=== PATIENT | female | born 1975 | race Caucasian/White ===

== ENCOUNTER 2018-04-06 05:35 | Outpatient (CLI) | payer OTHER ==
[~2018-04-06] VITALS: Ht 170.2 cm; Wt 50.8 kg
== END 2018-04-06 10:36 | disposition home or self-care (01) ==
LOC: PREOP 05:35
PROVIDERS: ATTEND Surgery
DX: Z01.818 Encounter for other preprocedural examination (principal)

== ENCOUNTER 2018-04-12 08:30 | Day surgery (SDC) | payer OTHER ==
[~2018-04-12] VITALS: Ht 170.2 cm; Wt 50.8 kg
[2018-04-12] MEDS ORDERED: NS IV 500 ML 500 ML ONE (08:37)
[2018-04-12] MEDS ORDERED: NS IV 500 ML 500 ML IV PRN (09:02)
[2018-04-12 09:06] VITALS: BP 111/79
[2018-04-12] MEDS ORDERED: HURRICAINE EXT TUBE (BENZOCAINE) XX PRN (09:15)
[2018-04-12] MEDS ORDERED: MIDAZOLAM 2 MG/2 ML (VERSED) VIAL IVP ONE (09:15)
[2018-04-12] MEDS ORDERED: fentaNYL INJECTION 100 MCG/2 ML AMP IVP ONE (09:15)
--- NOTE | 2018-04-12 09:33 | History & Physicial ---
History of Present Illness History of Present Illness Reason for visit/HPI to undergo an upper endoscopy with concomitant anoscopy regarding nausea, weight loss and a change in bowel habits. She reports a family history of esophageal carcinoma Date of Admission 04/12/18 Date Seen by a Provider: Apr 12, 2018 Time Seen by a Provider: 09:32 I consulted on this patient on 04/12/18 09:31 Attending Physician Ami Mann MD Admitting Physician Jeremi Sage DO Consult Allergies and Home Medications Allergies Coded Allergies: lansoprazole (Verified Allergy, Mild, TACHYCARDIA, 04/06/18) Home Medications No Active Prescriptions or Reported Meds Patient Home Medication List Home Medication List Reviewed: Yes Past Hgqfduf-Dcjvbp-Qxvwed Hx Patient Social History Marrital Status: Employed/Student: employed Alcohol Use: Denies Use Recreational Drug Use: No Smoking Status: Never a Smoker Recent Foreign Travel: No Contact w/other who traveled: No Recent Hopitalizations: No Immunizations Up To Date Date of Influenza Vaccine: Mar 15, 2018 Seasonal Allergies Seasonal Allergies: Yes (MILD) Surgeries Yes Gallbladder, Hysterectomy Respiratory No Cardiovascular No Reproductive System Hx Reproductive Disorders: No Sexually Transmitted Disease: No HIV/AIDS: No Gastrointestinal Yes Gastroesophageal Reflux, Chronic Constipation, Chronic Diarrhea Blood Transfusions Adverse Reaction to a Blood Tr: No (N/A) Review of Systems Constitutional: no symptoms reported EENTM: no symptoms reported Respiratory: no symptoms reported Cardiovascular: no symptoms reported Gastrointestinal: see HPI Genitourinary: no symptoms reported Musculoskeletal: no symptoms reported Skin: no symptoms reported Psychiatric/Neurological: No Symptoms Reported Physical Exam Vital Signs Vital Signs - First Documented 04/12/18 09:06 Temp 97.3 Pulse 86 Resp 18 B/P (MAP) 111/79 (90) Pulse Ox 100 O2 Delivery Room Air Capillary Refill : Height, Weight, BMI Height: 5'7.00" Weight: 112lbs. 0.0oz. 50.252340yd; 17.5 BMI Method: General Appearance: No Apparent Distress Respiratory: Lungs Clear Cardiovascular: Regular Rate, Rhythm Gastrointestinal: Non Tender, Soft Rectal: Deferred Neurologic/Psychiatric: Oriented x3 Skin: Normal Color, Warm/Dry Assessment/Plan Assessment and Plan lady with nausea, weight loss and change in bowel habits. For EGD with colonoscopy Admission Diagnosis Admission Status: Other (Outpt Proc) AMI MANN MD Apr 12, 2018 09:33
--- NOTE | 2018-04-12 09:34 | Conscious Sedation/ASA ---
Conscious Sedation Pre-Proced Time 09:34 ASA Score 2 For ASA 3 and 4: Consider anesthesia and medical clearance. Also, for patients with a history of failed moderate sedation consider anesthesia. Airway Lungs Heart ASA score ASA 1: a normal healthy patient ASA 2: a patient with a mild systemic disease (mid diabetes, controlled hypertension, obesity ASA 3: a patient with a severe systemic disease that limits activity (angina , COPD, prior Myocardial infarction) ASA 4: a patient with an incapacitating disease that is a constant threat to life (CHF, renal failure) ASA 5: a moribund patient not expected to survive 24 hrs. (ruptured aneurysm) ASA 6: a declared brain patient whose organs are being harvested. For emergent operations, add the letter E after the classification Mallampati Classification Grade 1 Sedation Plan Discussed options with patient/fam The patient is an appropriate candidate to undergo the planned procedure, sedation, and anesthesia. The patient immediately re-assessed prior to indication. AMI MANN MD Apr 12, 2018 09:34
--- OUTSIDE RECORDS SUMMARY | 2018-04-12 09:47 | XMS REPORT ---
Author Author [facility] Medical Staff Organization [facility] Address [address] [place], [place] [address] Phone [phone] Care Team Providers Care Warp Tester Name Role Phone TAHIRA KING, JUSTO PP [phone] Summary purpose CCDA Sent to [facility] Chief Complaint and Reason for Visit No authorized Reason for Visit (Admitting Diagnosis) is available for this visit. Problem list No authorized problems tracked for continuity of care are available for this visit. Encounters No authorized problems tracked for encounter diagnoses are available for this visit. Medications No medications recorded for this patient visit Allergies, adverse reactions, alerts Allergen Category Ingredient Status Reaction Severity Onset Prevacid Drug Prevacid Active tachy Moderate Adolescence Prevacid Drug lansoprazole Active tachy Moderate Adolescence Benadryl Drug Benadryl Active tachy Moderate Adolescence Benadryl Drug diphenhydramine Active tachy Moderate Adolescence Immunizations No immunizations recorded for this patient visit Relevant diagnostic tests and/or laboratory data No authorized results are available for this patient visit History of procedures Procedure Code Code Type Description Date Performed Performing Physician 57213 CPT-4 EMERGENCY DEPT VISIT 04-05-2016 SUSI MCKINNEY Functional status No functional or cognitive status observations are available for this visit. Vital signs No authorized vital signs are available for this visit. Social history No Social History or smoking status observations were recorded for this visit. ( Unknown if ever smoked.) Treatment Plan No treatment plan text is available for this visit. Hospital discharge instructions No discharge instruction text is available for this visit.
--- OUTSIDE RECORDS SUMMARY | 2018-04-12 09:47 | XMS REPORT ---
Author Author [facility] Medical Staff Organization [facility] Address [address] [place], [place] [address] Phone [phone] Care Team Providers Care Field Technical Specialist Name Role Phone JUSTO HOFFMANN MD PP [phone] Summary purpose CCDA Sent to [facility] Chief Complaint and Reason for Visit No [...] visit Relevant diagnostic tests and/or laboratory data RESULTS CBC [id number]:12:00 Result Normal Range Units WBC L 4.49 4.60-10.20 x 103/uL RBC L 4.01 4.04-6.13 x 106/uL Hemoglobin 12.2 12.2-18.1 g/dl Hematocrit L 37.1 37.7-53.7 % MCV 92.5 80.0-97.0 FL MCH 30.4 27.0-31.2 pg MCHC 32.9 31.8-35.4 g/dl RDW 12.7 11.6-14.8 % Platelets 205 142-424 x 103/uL MPV 10.6 9.4-12.4 FL Manual Diff Not Indicated Neutrophil % 68.8 37-80 % Neutrophils 3.09 2.0-6.9 x 103/uL Lymphocyte % 22.3 10-50 % Lymphocytes 1.00 0.6-3.4 x 103/uL Monocyte % 6.7 0-12 % Monocytes 0.30 0.0-1.0 x 103/uL Eosinophil % 1.8 0-7 % Eosinophils 0.08 0-0.7 x 103/uL Basophil % 0.4 0-2 % Basophils 0.02 0.0-0.1 x 103/uL Chemistry Group :12:00 Result Normal Range Units Hemoglobin A1C 4.9 < 6.0 % Ferritin 60.02 25-300 ng/ml Free T4 1.00 0.70-1.48 ng/dl TSH 1.62 0.35-4.94 uIU/mL Iron 69 50-175 ug/dl T3 0.91 0.58-1.59 ng/ml Reference Lab Group :12:00 Result Normal Range Units Wheat H 0.24 kU/L Class 0/1 TEST PERFORMED AT: [facility] [address] [place], [place] [address] MAGALIS CASILLAS DO,MPH TPO Antibody 1 <9 IU/mL TEST PERFORMED AT: [facility] [place] [address] MAGALIS CASILLAS DO,MPH Thyroglobulin Ab's H 2 < or=1 IU/mL TEST PERFORMED AT: [facility] [address] MAGALIS CASILLAS DO,MPH Interpretation See Below SpecificLevel of Allergen IGE ClasskU/L Specific IGE Antibody ----- --------- 0<0.10 Absent/Undetectable 0/10.10-0.34 Very Low Level 10.35-0.69 Low Level 20.70-3.49 Moderate Level 33.50-17.4 High Level 417.5-49.9 Very High Level 550-100Very High Level 6>100Very High Level The clinical relevance of allergen results of 0.10-0.34 kU/L are undetermined and intended for specialist use. Allergens denoted with a "" include results using one or more analyte specific reagents. In those cases, the test was developed and its analytical performance characteristics have been determined by [employer]. It has not been cleared or approved by the U.S. Food and Drug Administration. The FDA has determined that such clearance or approval is not necessary. This assay has been validated pursuant to the CLIA regulations and is used for clinical purposes. TEST PERFORMED AT: [facility] [address] [place] [address] MAGALIS CASILLAS DO,MPH Special Chemistry [id number]:12:00 Result Normal Range Units Vitamin D 25 43.3 30-100 ng/ml Ferritin 60.02 25-300 ng/ml History of procedures Procedure Code Code Type Description Date Performed Performing Physician 13882 CPT-4 ASSAY OF VITAMIN D 02-08-2016 [facility] 50944 CPT-4 ASSAY THYROID STIM HORMONE 02-08-2016 [facility] 53928 CPT-4 ASSAY OF FREE THYROXINE 02-08-2016 [facility] 29982 CPT-4 ASSAY, TRIIODOTHYRONINE (T3) 02-08-2016 [facility] 22289 CPT-4 ASSAY OF IRON 02-08-2016 [facility] 03805 CPT-4 GLYCOSYLATED HEMOGLOBIN TEST 02-08-2016 [facility] 50736 CPT-4 COMPLETE CBC W/AUTO DIFF WBC 02-08-2016 [facility] 28159 CPT-4 ASSAY OF FERRITIN 02-08-2016 [facility] 68660 CPT-4 THYROGLOBULIN ANTIBODY 02-08-2016 [facility] 17591 CPT-4 MICROSOMAL ANTIBODY 02-08-2016 [facility] 79386 CPT-4 ALLERGEN SPECIFIC IGE 02-08-2016 [facility] 76078 CPT-4 ROUTINE VENIPUNCTURE 02-08-2016 [facility] Functional status No functional or cognitive status [...]
--- OUTSIDE RECORDS SUMMARY | 2018-04-12 09:48 | XMS REPORT ---
Author Author [facility] Medical Staff Organization [facility] Address [address] [place], [place] [address] Phone [phone] Care Team Providers Care Skating Rink Ice Maker Name Role Phone TAHIRA KING, JUSTO PP [phone] Summary purpose CCDA Sent to [facility] Chief Complaint and Reason for [...] Code Type Description Date Performed Performing Physician 50228 CPT-4 EMERGENCY DEPT VISIT 09-09-2015 [place] Functional status No functional or cognitive status [...]
--- OUTSIDE RECORDS SUMMARY | 2018-04-12 09:48 | XMS REPORT ---
Author Author [facility] Medical Staff Organization [facility] Address [address] [place], [place] [address] Phone [phone] Care Team Providers Care Mechanical Tech Name Role Phone TAHIRA KING, JUSTO PP [phone] TAHIRA KING, JUSTO PP [phone] JUSTO ESPINOSA MD PP [phone] Summary purpose CCDA Sent to [facility] Chief Complaint and Reason for Visit No authorized Reason for Visit (Admitting Diagnosis) is available for this visit. Problem list Condition Status Certainty Chronicity Onset .Irritable bowel syndrome Resolved Actual Acute .Nausea Resolved Actual Acute .Vomiting Discharged .Dehydration Resolved Actual Acute Encounters The following conditions tracked for encounter diagnoses were recorded for this visit: Finding or Diagnosis Status Certainty Chronicity Onset .Irritable bowel syndrome Resolved Actual Acute .Nausea Resolved Actual Acute .Vomiting Discharged .Dehydration Resolved Actual Acute Medications Discharge Medications Status Medication Directions Current omeprazole 40 mg capsule,delayed release 1 tab(s) oral oral TWO TIMES A DAY Allergies, adverse reactions, alerts Allergen Category Ingredient Status Reaction Severity Onset Prevacid Drug Prevacid Active tachy Moderate Adolescence Prevacid Drug lansoprazole Active tachy Moderate Adolescence Benadryl Drug Benadryl Active tachy Moderate Adolescence Benadryl Drug diphenhydramine Active tachy Moderate Adolescence Immunizations No immunizations recorded for this patient visit Relevant diagnostic tests and/or laboratory data RESULTS CBC [id number]:20:00 Result Normal Range Units WBC 5.92 4.60-10.20 x 103/uL RBC 4.40 4.04-6.13 x 106/uL Hemoglobin 13.5 12.2-18.1 g/dl Hematocrit 39.9 37.7-53.7 % MCV 90.7 80.0-97.0 FL MCH 30.7 27.0-31.2 pg MCHC 33.8 31.8-35.4 g/dl RDW 12.6 11.6-14.8 % Platelets 205 142-424 x 103/uL MPV 10.1 9.4-12.4 FL Manual Diff Not Indicated Neutrophil % 73.1 37-80 % Neutrophils 4.33 2.0-6.9 x 103/uL Lymphocyte % 16.6 10-50 % Lymphocytes 0.98 0.6-3.4 x 103/uL Monocyte % 8.8 0-12 % Monocytes 0.52 0.0-1.0 x 103/uL Eosinophil % 1.2 0-7 % Eosinophils 0.07 0-0.7 x 103/uL Basophil % 0.3 0-2 % Basophils 0.02 0.0-0.1 x 103/uL Urinalysis :32:00 Result Normal Range Units Site Voided Urine Color Yellow Yellow Urine Appearance Clear Clear Urine Glucose Negative Negative Urine Bilirubin AB 1+ Negative Urine Ketones AB 2+ Negative Urine Specific Ambler H 1.025 1.010-1.020 Urine PH 7.0 5.5-7.5 Urine Protein AB 1+ Negative Urine Urobilinogen 0.2 0.2-1.0 Urine Nitrites Negative Negative Urine Blood AB Trace Negative Urine Leukocytes Negative Negative Urine WBC's None Seen Urine RBC's 3-5 Urine Comments Mucous 2+ Squamous Epi's 1+ Serology Group [id number]:15:00 Result Normal Range Units H Pylori IgG AB Positive Negative :03:00 Result Normal Range Units , Urine Negative Negative Chemistry Group :30:00 Result Normal Range Units T4 5.25 4.87-11.72 ug/dl TSH 1.50 0.35-4.94 uIU/mL :46:00 Result Normal Range Units Amylase 51 25-125 U/L Lipase L 7 8-78 U/L :20:00 Result Normal Range Units Glucose H 109 70-99 mg/dl BUN 13 7-26 mg/dl Creatinine 0.8 0.6-1.3 mg/dl Sodium 139 136-145 mmol/L Potassium 3.5 3.5-5.1 mmol/L Chloride 106 98-107 mmol/L CO2 L 21 22-29 mmol/L BUN/Creatinine Ratio 16 7-25 Ratio Calcium 9.2 8.4-10.2 mg/dl Protein Total 7.5 6.4-8.3 g/dl Albumin 4.1 3.5-5.0 g/dl A/G Ratio 1.2 1.2-2.2 Ratio AST 16 5-34 U/L ALT 17 0-55 U/L ALP 55 40-150 U/L Bilirubin Total H 1.3 0.2-1.2 mg/dl Osmolality 269 261-280 mOsm/kg Globulin 3.4 2.4-3.5 g/dl Reference Lab Group [id number]:35:00 Result Normal Range Units Source Unformed Result Amended on 2015-09-10 at 15:07:04. Previous status was FR. The [employer] Gastrointestinal Panel is intended as an aid in the diagnosis of specific agents of gastrointestinal illness and results are meant to be used in conjunction with other clinical, laboratory, and epidemiological data.Testing should only be performed on individuals with signs and/or symptoms of gastrointestinal illness (i.e. diarrhea).This test is not intended to monitor or guide treatment for C.difficle infection in adults or detection in children less than 2 years of age. Campylobacter Not Detected Not Detected Result Amended on 2015-09-10 at 15:07:04. Previous status was FR. C difficile toxin A/B AB Detected Not Detected Result Amended on 2015-09-10 at 15:07:04. Previous status was FR. Result successfully called to [facility] on 09/10/2015 at 15:04 by SARAH. IZZY Plesiomonas shigelloid Not Detected Not Detected Result Amended on 2015-09-10 at 15:07:04. Previous status was FR. Salmonella Not Detected Not Detected Result Amended on 2015-09-10 at 15:07:05. Previous status was FR. Vibrio Not Detected Not Detected Result Amended on 2015-09-10 at 15:07:05. Previous status was FR. Vibrio cholerae Not Detected Not Detected Result Amended on 2015-09-10 at 15:07:05. Previous status was FR. Yersinia enterocolitica Not Detected Not Detected Result Amended on 2015-09-10 at 15:07:05. Previous status was FR. Enteroaggregative Ecoli Not Detected Not Detected Result Amended on 2015-09-10 at 15:07:05. Previous status was FR. Enteropathogenic Ecoli Not Detected Not Detected Result Amended on 2015-09-10 at 15:07:05. Previous status was FR. Enterotoxigenic Ecoli Not Detected Not Detected Result Amended on 2015-09-10 at 15:07:05. Previous status was FR. Shig-like toxin Ecoli Not Detected Not Detected Result Amended on 2015-09-10 at 15:07:05. Previous status was FR. Shig/Enteroinvasiv Ecoli Not Detected Not Detected Result Amended on 2015-09-10 at 15:07:05. Previous status was FR. Cryptosporidium Not Detected Not Detected Result Amended on 2015-09-10 at 15:07:05. Previous status was FR. Cyclospora cayetanens. Not Detected Not Detected Result Amended on 2015-09-10 at 15:07:05. Previous status was FR. Entamoeba histolytica Not Detected Not Detected Result Amended on 2015-09-10 at 15:07:05. Previous status was FR. Giardia Lamblia Not Detected Not Detected Result Amended on 2015-09-10 at 15:07:05. Previous status was FR. Adenovirus F 40/41 Not Detected Not Detected Result Amended on 2015-09-10 at 15:07:05. Previous status was FR. Asterovirus Not Detected Not Detected Result Amended on 2015-09-10 at 15:07:05. Previous status was FR. Norovirus GI/GII Not Detected Not Detected Result Amended on 2015-09-10 at 15:07:05. Previous status was FR. Rotavirus Not Detected Not Detected Result Amended on 2015-09-10 at 15:07:05. Previous status was FR. Sapovirus Not Detected Not Detected Result Amended on 2015-09-10 at 15:07:05. Previous status was FR. [id number]:22:00 Result Normal Range Units Adenovirus Not Detected Not Detected Result Amended on 2015-09-09 at 15:32:07. Previous status was FR. Adeno2 Not Detected Not Detected Result Amended on 2015-09-09 at 15:32:07. Previous status was FR. Coronavirus 229E Not Detected Not Detected Result Amended on 2015-09-09 at 15:32:07. Previous status was FR. Coronavirus HKU1 Not Detected Not Detected Result Amended on 2015-09-09 at 15:32:07. Previous status was FR. Coronavirus NL63 Not Detected Not Detected Result Amended on 2015-09-09 at 15:32:07. Previous status was FR. Coronavirus OC43 Not Detected Not Detected Result Amended on 2015-09-09 at 15:32:07. Previous status was FR. Human Metapneumovir. Not Detected Not Detected Result Amended on 2015-09-09 at 15:32:07. Previous status was FR. Entero1 Not Detected Not Detected Result Amended on 2015-09-09 at 15:32:07. Previous status was FR. Entero2 Not Detected Not Detected Result Amended on 2015-09-09 at 15:32:07. Previous status was FR. Human Rhinovirus 1 Not Detected Not Detected Result Amended on 2015-09-09 at 15:32:07. Previous status was FR. Human Rhinovirus 2 Not Detected Not Detected Result Amended on 2015-09-09 at 15:32:07. Previous status was FR. Human Rhinovirus 3 Not Detected Not Detected Result Amended on 2015-09-09 at 15:32:07. Previous status was FR. Human Rhinovirus 4 Not Detected Not Detected Result Amended on 2015-09-09 at 15:32:07. Previous status was FR. IihQ-H4-3358 Not Detected Not Detected Result Amended on 2015-09-09 at 15:32:07. Previous status was FR. FluA-H1-gonzalez Not Detected Not Detected Result Amended on 2015-09-09 at 15:32:07. Previous status was FR. FluA-H3 Not Detected Not Detected Result Amended on 2015-09-09 at 15:32:07. Previous status was FR. FluA-pan1 Not Detected Not Detected Result Amended on 2015-09-09 at 15:32:07. Previous status was FR. FluA-pan2 Not Detected Not Detected Result Amended on 2015-09-09 at 15:32:07. Previous status was FR. Influenza B Not Detected Not Detected Result Amended on 2015-09-09 at 15:32:07. Previous status was FR. Parainfluenza Virus 1 Not Detected Not Detected Result Amended on 2015-09-09 at 15:32:07. Previous status was FR. Parainfluenza Virus 2 Not Detected Not Detected Result Amended on 2015-09-09 at 15:32:07. Previous status was FR. Parainfluenza Virus 3 Not Detected Not Detected Result Amended on 2015-09-09 at 15:32:07. Previous status was FR. Parainfluenza Virus 4 Not Detected Not Detected Result Amended on 2015-09-09 at 15:32:07. Previous status was FR. Respiratory Syncytial Vir Not Detected Not Detected Result Amended on 2015-09-09 at 15:32:07. Previous status was FR. Bordetella pertussis Not Detected Not Detected Result Amended on 2015-09-09 at 15:32:07. Previous status was FR. Chlamydophila pnemon Not Detected Not Detected Result Amended on 2015-09-09 at 15:32:07. Previous status was FR. Mycoplasma pneumoni Not Detected Not Detected Result Amended on 2015-09-09 at 15:32:07. Previous status was FR. Urinalysis [id number]:32:00 Result Normal Range Units Site Voided Urine Color Yellow Yellow Urine Appearance Clear Clear Urine Glucose Negative Negative Urine Bilirubin AB 1+ Negative Urine Ketones AB 2+ Negative Urine Specific Ambler H 1.025 1.010-1.020 Urine PH 7.0 5.5-7.5 Urine Protein AB 1+ Negative Urine Urobilinogen 0.2 0.2-1.0 Urine Nitrites Negative Negative Urine Blood AB Trace Negative Urine Leukocytes Negative Negative Urine WBC's None Seen Urine RBC's 3-5 Squamous Epi's 1+ Gram Positive Bacteria [id number]:22:00 Result Normal Range Units Entero1 Not Detected Not Detected Result Amended on 2015-09-09 at 15:32:07. Previous status was FR. History of procedures Procedure Code Code Type Description Date Performed Performing Physician G0378 CPT-4 HOSPITAL OBSERVATION PER HR 09-09-2015 JUSTO ESPINOSA 67977 CPT-4 COMPLETE CBC W/AUTO DIFF WBC 09-09-2015 JUSTO ESPINOSA 11471 CPT-4 COMPREHEN METABOLIC PANEL 09-09-2015 JUSTO ESPINOSA 50382 CPT-4 URINALYSIS, AUTO W/SCOPE 09-09-2015 JUSTO ESPINOSA 78882 CPT-4 DETECT AGENT NOS, DNA, AMP 09-09-2015 JUSTO ESPINOSA 03947 CPT-4 RESP VIRUS -25 TARGETS 09-09-2015 JUSTO ESPINOSA 78037 CPT-4 CHYLMD PNEUM, DNA, AMP PROBE 09-09-2015 JUSTO ESPINOSA 38968 CPT-4 M.PNEUMON, DNA, AMP PROBE 09-09-2015 JUSTO ESPINOSA 31458 CPT-4 ASSAY OF AMYLASE 09-09-2015 JUSTO ESPINOSA 67941 CPT-4 ASSAY OF LIPASE 09-09-2015 JUSTO ESPINOSA 11324 CPT-4 URINE TEST 09-09-2015 JUSTO ESPINOSA 98784 CPT-4 CT ABD&PELV 1+ SECTION/REGNS 09-09-2015 JUSTO ESPINOSA 00203 CPT-4 HELICOBACTER PYLORI 09-09-2015 JUSTO ESPINOSA J2550 CPT-4 PROMETHAZINE HCL INJECTION 09-09-2015 [place] J7030 CPT-4 INFUSION, NS, 1000 CC 09-09-2015 VONTONI NUNO J7030 CPT-4 INFUSION, NS, 1000 CC 09-09-2015 [place] C9113 CPT-4 INJ PANTOPRAZOLE SODIUM, VIA 09-09-2015 [place] 27616 CPT-4 ROUTINE VENIPUNCTURE 09-09-2015 JUSTO ESPINOSA 46688 CPT-4 EMERGENCY DEPT VISIT 09-09-2015 JUSTO ESPINOSA 99383 CPT-4 THER/PROPH/DIAG INJ, IV PUSH 09-09-2015 JUSTO ESPINOSA 07448 CPT-4 IADNA-DNA/RNA PROBE TQ 06-0809-10-2015 JUSTO ESPINOSA 45099 CPT-4 ASSAY THYROID STIM HORMONE 09-10-2015 JUSTO ESPINOSA 21776 CPT-4 ASSAY OF TOTAL THYROXINE 09-10-2015 JUSTO ESPINOSA J7030 CPT-4 INFUSION, NS, 1000 CC 09-10-2015 [place] J7030 CPT-4 INFUSION, NS, 1000 CC 09-10-2015 [place] 95622 CPT-4 ROUTINE VENIPUNCTURE 09-10-2015 JUSTO ESPINOSA Q9967 CPT-4 LOCM 300-399MG/ML IODINE,1ML 09-09-2015 JUSTO ESPINOSA J7050 CPT-4 NS SOLUTION 250 CC INFUSION 09-09-2015 JUSTO ESPINOSA 70265 CPT-4 HYDRATE IV INFUSION, ADD-ON 09-09-2015 JUSTO ESPINOSA 60361 CPT-4 TX/PRO/DX INJ NEW DRUG ADDON 09-09-2015 JUSTO ESPINOSA 69473 CPT-4 HYDRATE IV INFUSION, ADD-ON 09-09-2015 JUSTO ESPINOSA 89680 CPT-4 HYDRATE IV INFUSION, ADD-ON 09-10-2015 JUSTO ESPINOSA Functional status Functional Status Finding Observation Time Dexterity Right-handed :05 Weight Bearing Statu Full [id number]:00 Transferring/Ambulat Independent 17-58-181150:05 Bathing Independent :05 Dressing Independent :05 Eating Independent :05 Drinking Independent :05 Toileting Independent :05 Able to Turn Self in Independent :05 Stairs Independent :05 Cognitive Status Finding Observation Time Level of Consciousne Alert :00 Oriented to Person Yes :[address] Yes :00 Oriented to Time Yes :00 Eyes - ROSI Yes :00 Vital signs Type Value Date Respirations 20 :45 Pulse 78 :45 O2 Saturation 100% :45 Systolic Blood Press 92mm/HG :45 Diastolic Blood Pres 58mm/HG :45 Temperature (Fahr) 99.3Degrees :45 Height 67in :48 Weight 115.8LB [id number]:48 Social history Type Value Smoking Status NEVER SMOKER Treatment Plan Treatment Plan at To follow up in 1 week in office and to take antibiotic for 10 days and not to return to work until 09/18/15 Hospital discharge instructions Diagnosis Abdominal Pain -secondary to H. Pylori vs IBS vs Endometriosis Diet As tolerated Activity Level as tolerated Med Dispensed by Pro See med list. Also start on daily probiotic. Follow up with Dr. Espinosa Appointment Date and 09/17/15 @ 2:30 PM Comment: [phone] Other Instructions We will schedule you with an paint department supervisor as an outpatient.
--- OUTSIDE RECORDS SUMMARY | 2018-04-12 09:48 | XMS REPORT ---
Author Author [facility] Medical Staff Organization [facility] Address [address] [place], [place] [address] Phone [phone] Care Team Providers Care Gauger Delivery Name Role Phone TAHIRA KING, JUSTO PP [phone] JUSTO HOFFMANN MD, PP [phone] Summary purpose CCDA Sent to [facility] Chief Complaint and Reason for Visit [...] Code Type Description Date Performed Performing Physician J0696 CPT-4 CEFTRIAXONE SODIUM INJECTION 04-06-2016 SUSI MCKINNEY J7050 CPT-4 NS SOLUTION 250 CC INFUSION 04-06-2016 SUSI MCKINNEY 97655 CPT-4 THER/PROPH/DIAG IV INF, INIT 04-06-2016 SUSI MCKINNEY Functional status No functional or cognitive status observations are available for this visit. Vital signs Type Value Date Respirations 20 :20 Pulse 100 :20 O2 Saturation 99% :20 Systolic Blood Press 97mm/HG :20 Diastolic Blood Pres 77mm/HG 82-22-968568:20 Temperature (Fahr) 98.2Degrees :20 Social history No Social History or smoking status observations were recorded for this visit. ( Unknown if ever smoked.) Treatment Plan No treatment plan text is available for this visit. Hospital discharge instructions No discharge instruction text is available for this visit.
--- OUTSIDE RECORDS SUMMARY | 2018-04-12 09:48 | XMS REPORT ---
Author Author [facility] Medical Staff Organization [facility] Address [address] [place], [place] [address] Phone [phone] Care Team Providers Care Slitter Helper Name Role Phone JESÚS KING, JUSTO PP [phone] JUSTO HOFFMANN MD, PP [phone] Summary purpose CCDA Sent to [facility] Chief Complaint and Reason for Visit No authorized Reason for Visit (Admitting Diagnosis) is available for this visit. Problem list No authorized problems tracked for continuity of care are available for this visit. Encounters No authorized problems tracked for encounter diagnoses are available for this visit. Medications Discharge Medications Status Medication Directions Current Zantac 75 oral 1 Tablet oral 2 times per day Allergies, adverse reactions, alerts Allergen Category Ingredient Status Reaction Severity Onset No known drug allergies No known drug allergies No known drug allergies Active Immunizations No immunizations recorded for this patient visit Relevant diagnostic tests and/or laboratory data No authorized results are available for this patient visit History of procedures Procedure Code Code Type Description Date Performed Performing Physician 99709 CPT-4 EXC TR-EXT B9+TATI 3.1-4 CM 06-21-2015 JUSTO HOFFMANN Functional status No functional or cognitive status observations are available for this visit. Vital signs Type Value Date Respirations 18 89-89-280406:23 Pulse 82 03-65-752481:23 O2 Saturation 97% 34-18-011372:23 Systolic Blood Press 149mm/HG 58-88-945947:23 Diastolic Blood Pres 64mm/HG 80-09-559673:23 Temperature (Fahr) 98.2Degrees 14-21-445473:23 Social history No Social History or smoking status observations were recorded for this visit. ( Unknown if ever smoked.) Treatment Plan No treatment plan text is available for this visit. Hospital discharge instructions Diagnosis removal of lesions of the back Diet as tolerated Activity Level keep this clean and dry for 2 days if possible. change the dressing if it gets wet. When yoiu do wash the areas, just lket water run over it Personal Items Retur Yes Med Dispensed by [facility] may take tylenol or ibuprofen for pain. Avoid aspirin [facility] W[facility] Care you let your Dr know if you see any rednessm, swelling or have pain of the site, even after the sutures come out.
--- OUTSIDE RECORDS SUMMARY | 2018-04-12 09:48 | XMS REPORT ---
Author Author [facility] Medical Staff Organization [facility] Address [address] [place], [place] [address] Phone [phone] Care Team Providers Care Tree Sapper Name Role Phone JUSTO HOFFMANN MD PP [phone] JUSTO HOFFMANN MD, PP [phone] Summary purpose CCDA Sent to [facility] Chief Complaint and Reason for Visit Admit Diagnosis 1 HYSTERECTOMY THIS WEEK-SOB NOW Problem list No authorized problems tracked for continuity of care are available for this visit. Encounters No authorized problems tracked for encounter diagnoses are available for this visit. Medications Discharge Medications Status Medication Directions Current ibuprofen 800 mg tablet 800 miligram(s) oral oral EVERY EIGHT HOURS NEEDED for pain Current omeprazole 40 mg capsule,delayed release 40 miligram(s) oral TWO TIMES A DAY Stopped Probiotic oral 1 tab(s) oral ONE TIME A DAY follows instructions on bottle Allergies, adverse reactions, alerts Allergen Category Ingredient Status Reaction Severity Onset Prevacid Drug Prevacid Active tachy Moderate Adolescence Prevacid Drug lansoprazole Active tachy Moderate Adolescence Benadryl Drug Benadryl Active tachy Moderate Adolescence Benadryl Drug diphenhydramine Active tachy Moderate Adolescence Immunizations No immunizations recorded for this patient visit Relevant diagnostic tests and/or laboratory data RESULTS CBC 62-50-257017:15:00 Result Normal Range Units WBC 6.27 4.60-10.20 x 103/uL RBC L 3.82 4.04-6.13 x 106/uL Hemoglobin L 11.6 12.2-18.1 g/dl Hematocrit L 34.9 37.7-53.7 % MCV 91.4 80.0-97.0 FL MCH 30.4 27.0-31.2 pg MCHC 33.2 31.8-35.4 g/dl RDW 12.8 11.6-14.8 % Platelets 170 142-424 x 103/uL MPV 10.1 9.4-12.4 FL Manual Diff Not Indicated Neutrophil % H 81.1 37-80 % Neutrophils 5.09 2.0-6.9 x 103/uL Lymphocyte % 12.8 10-50 % Lymphocytes 0.80 0.6-3.4 x 103/uL Monocyte % 5.7 0-12 % Monocytes 0.36 0.0-1.0 x 103/uL Eosinophil % 0.2 0-7 % Eosinophils 0.01 0-0.7 x 103/uL Basophil % 0.2 0-2 % Basophils 0.01 0.0-0.1 x 103/uL Urinalysis :20:00 Result Normal Range Units Site Voided Urine Color Yellow Yellow Urine Appearance Clear Clear Urine Glucose Negative Negative Urine Bilirubin Negative Negative Urine Ketones Negative Negative Urine Specific Ethel 1.015 1.010-1.020 Urine PH 7.5 5.5-7.5 Urine Protein Negative Negative Urine Urobilinogen 0.2 0.2-1.0 Urine Nitrites Negative Negative Urine Blood AB 2+ Negative Urine Leukocytes AB 1+ Negative Urine WBC's 6-10 Urine RBC's 16-20 Urine Comments CULTURE SET Amorphous Crystals 1+ Squamous Epi's 1+ Chemistry Group :15:00 Result Normal Range Units Glucose 97 70-99 mg/dl BUN L 6 7-26 mg/dl Creatinine 0.7 0.6-1.3 mg/dl Sodium 139 136-145 mmol/L Potassium L 3.1 3.5-5.1 mmol/L Chloride H 108 98-107 mmol/L CO2 24 22-29 mmol/L BUN/Creatinine Ratio 9 7-25 Ratio Calcium 8.6 8.4-10.2 mg/dl Protein Total L 6.2 6.4-8.3 g/dl Albumin L 3.2 3.5-5.0 g/dl A/G Ratio L 1.1 1.2-2.2 Ratio AST 32 5-34 U/L ALT 38 0-55 U/L ALP 47 40-150 U/L Bilirubin Total 0.8 0.2-1.2 mg/dl Osmolality 266 261-280 mOsm/kg Globulin 3.0 2.4-3.5 g/dl D-Dimer H 2280 < 100 ng/ml Urinalysis :20:00 Result Normal Range Units Site Voided Urine Color Yellow Yellow Urine Appearance Clear Clear Urine Glucose Negative Negative Urine Bilirubin Negative Negative Urine Ketones Negative Negative Urine Specific Ethel 1.015 1.010-1.020 Urine PH 7.5 5.5-7.5 Urine Protein Negative Negative Urine Urobilinogen 0.2 0.2-1.0 Urine Nitrites Negative Negative Urine Blood AB 2+ Negative Urine Leukocytes AB 1+ Negative Urine WBC's 6-10 Urine RBC's 16-20 Amorphous Crystals 1+ Squamous Epi's 1+ History of procedures Procedure Code Code Type Description Date Performed Performing Physician 85103 CPT-4 COMPLETE CBC W/AUTO DIFF WBC 04-05-2016 SUSI FAYE 90065 CPT-4 COMPREHEN METABOLIC PANEL 04-05-2016 SUSI MCKINNEY 07498 CPT-4 URINALYSIS, AUTO W/SCOPE 04-05-2016 SUSI MCKINNEY 81506 CPT-4 FIBRIN DEGRADATION, QUANT 04-05-2016 SUIS MCKINNEY 30755 CPT-4 URINE CULTURE/COLONY COUNT 04-05-2016 SUSI MCKINNEY 83798 CPT-4 CT ANGIOGRAPHY, CHEST 04-05-2016 SUSI MCKINNEY 03607 CPT-4 AIRWAY INHALATION TREATMENT 04-05-2016 SUSI FAYE J0696 CPT-4 CEFTRIAXONE SODIUM INJECTION 04-05-2016 SUSI FAYE J7040 CPT-4 NORMAL SALINE SOLUTION INFUS 04-05-2016 SUSI FAYE 15828 CPT-4 EMERGENCY DEPT VISIT 04-05-2016 SUSI FAYE Q9967 CPT-4 LOCM 300-399MG/ML IODINE,1ML 04-05-2016 SUSI FAYE J7050 CPT-4 NS SOLUTION 250 CC INFUSION 04-05-2016 SUSI FAYE 13536 CPT-4 THER/PROPH/DIAG IV INF, INIT 04-05-2016 SUSI FAYE Functional status Cognitive Status Finding Observation Time Level of Consciousne Alert 59-62-516080:05 Oriented to Person Yes 42-35-201088:[address] Yes :05 Oriented to Time Yes :05 Eyes - ROSI Yes :05 Vital signs Type Value Date Respirations 18 63-61-100205:35 Pulse 107 :35 O2 Saturation 98% :35 Systolic Blood Press 90mm/HG :35 Diastolic Blood Pres 54mm/HG :35 Temperature (Fahr) 98.0Degrees :35 Social history Type Value Smoking Status NEVER SMOKER Treatment Plan No treatment plan text is available for this visit. Hospital discharge instructions Diagnosis Acute URI with right mid lobe congestion, UTI Diet regular Activity Level as able Med Dispensed by [facility] CTA of lungs were indicative of the infection and the UA was positive so you were given Rocephin 1Gm IV now and again in 24hrs. Also and Rx for keflex 500mg (cephalixin) was given at 500mg three times a day and also Proair HFA Inhaler was ordered at 2 puffs every four hours as needed for shortness of breath.. Follow up with your physician Appointment Date and as directed Wound Care continue care of abd sites as directed Other Instructions Notify if should worsen or if does not continue to improve..
--- OUTSIDE RECORDS SUMMARY | 2018-04-12 09:49 | XMS REPORT | Continuity of Care Document ---
Author Author [facility] Address Unknown Phone Unavailable Allergies Active Description Code Type Severity Reaction Onset Reported/Identified Relationship to Patient Clinical Status Yes diphenhydramine 4787 Drug Allergy N/A N/A Confirmed or Verified Yes lansoprazole 4456 Drug Allergy N/A N/A Confirmed or Verified Yes No Known Medication Allergies Drug N/A N/A Yes No known drug allergies [id number] Drug Allergy N/A N/A 06/21/2015 Confirmed but inactive Yes Benadryl 5527 Drug Allergy Moderate tachy 09/09/2015 Yes Prevacid 98732 Drug Allergy Moderate tachy 09/09/2015 Yes Prevacid 61331 Drug Allergy N/ A N/A 09/09/2015 Yes adhesive adhesive Drug Allergy Mild RASH/REDNESS 03/19/2016 Yes lansoprazole lansoprazole Drug Allergy Moderate CONTRACTURES/TACHYCARDIA Yes lansoprazole [id number] Drug Allergy Mild TACHYCARDIA 04/06/2018 Medications Medication Packaging Start Date Stop Date Route Dosage Sig PREDNISOLONE ACETATE 01/30/2016 instill 1 drop by ophthalmic route 4 times every day into affected eye(s) Problems Date Dx Coded Attending Type Code Diagnosis Diagnosed By 06/21/2015 JUSTO HOFFMANN MD D22.5 Melanocytic nevi of trunk 06/21/2015 JUSTO HOFFMANN MD D23.5 Other benign neoplasm of skin of trunk 09/09/2015 VON NUNO MD E86.0 Dehydration 09/09/2015 VON NUNO MD K21.9 Gastro-esophageal reflux disease without esophagitis 09/09/2015 VON NUNO MD K58.9 Irritable bowel syndrome without diarrhea 09/09/2015 VON NUNO MD N80.3 Endometriosis of pelvic peritoneum 09/09/2015 VON NUNO MD R10.33 Periumbilical pain 09/10/2015 JUSTO HOFFMANN MD E86.0 Dehydration 09/10/2015 JUSTO HOFFMANN MD K21.9 Gastro-esophageal reflux disease without esophagitis 09/10/2015 JUSTO HOFFMANN MD K58.9 Irritable bowel syndrome without diarrhea 09/10/2015 JUSTO HOFFMANN MD N80.3 Endometriosis of pelvic peritoneum 09/10/2015 JUSTO HOFFMANN MD R10.33 Periumbilical pain 02/02/2016 W H10.45 Other chronic allergic conjunctivitis 02/02/2016 W H52.223 Regular astigmatism, bilateral 02/04/2016 W H10.45 Other chronic allergic conjunctivitis 02/04/2016 W H52.223 Regular astigmatism, bilateral 02/08/2016 MICHELLE ESQUIVEL DC E07.9 Disorder of thyroid, unspecified 02/08/2016 MICHELLE ESQUIVEL DC E55.9 Vitamin D deficiency, unspecified 02/08/2016 MICHELLE ESQUIVEL DC E61.1 Iron deficiency 02/08/2016 MICHELLE ESQUIVEL DC R73.9 Hyperglycemia, unspecified 04/03/2016 Bettye Brown MD N92.0 EXCESSIVE AND FREQUENT MENSTRUATION WITH 04/03/2016 Bettye Brown MD N92.0 EXCESSIVE AND FREQUENT MENSTRUATION WITH 04/05/2016 TAHIRA KING, JUSTO Presley J06.9 Acute upper respiratory infection, unspecified 04/05/2016 JUSTO HOFFMANN MD N39.0 Urinary tract infection, site not specified 04/05/2016 JUSTO HOFFMANN MD R82.99 Other abnormal findings in urine 04/06/2016 SUSI MCKINNEY DO J06.9 Acute upper respiratory infection, unspecified 04/06/2016 SUSI MCKINNEY DO R06.00 Dyspnea, unspecified 01/25/2018 W H52.03 Hypermetropia , bilateral 01/25/2018 W H52.223 Regular astigmatism, bilateral 01/25/2018 W H52.03 Hypermetropia , bilateral 01/25/2018 W H52.223 Regular astigmatism, bilateral 01/25/2018 W H52.03 Hypermetropia , bilateral 01/25/2018 W H52.223 Regular astigmatism, bilateral 01/25/2018 W H52.03 Hypermetropia , bilateral 01/25/2018 W H52.223 Regular astigmatism, bilateral 01/25/2018 W H52.03 Hypermetropia , bilateral 01/25/2018 W H52.223 Regular astigmatism, bilateral 03/03/2018 CHONG FREED K58.9 Irritable bowel syndrome without diarrhea 03/03/2018 CHONG FREED R00.2 Palpitations 03/03/2018 CHONG FREED R10.84 Generalized abdominal pain 03/03/2018 CHONG FREED R11.0 Nausea 03/03/2018 CHONG FREED R63.4 Abnormal weight loss 04/06/2018 JOHNATHAN KING, AMI Motta Ot Z01.818 ENCOUNTER FOR OTHER PREPROCEDURAL EXAMIN 04/07/2018 JOHNATHAN KING, AMI Motta Ot Z01.818 ENCOUNTER FOR OTHER PREPROCEDURAL EXAMIN Procedures Code Description [place] [address] EXC TR-EXT B9+TATI 3.1-4 CM TAHIRA KING, JUSOT Carter 06/21/2015 L9999 MAMIE ALERT CODE TAHIRA KING, JUSTO Carter 06/21/2015 07000 ROUTINE VENIPUNCTURE TAHIRA KING, JUSTO Carter 09/09/[address] ABD & PELV 1/> SHAWNA HOFFMANN MD, JUSTO Carter 09/09/2015 07569 COMPREHEN METABOLIC PANEL JUSTO HOFFMANN MD 09/09/2015 44314 URINALYSIS AUTO W/SCOPE JUSTO HOFFMANN MD 09/09/2015 82358 URINE TEST JUSTO HOFFMANN MD 09/09/2015 55031 ASSAY OF AMYLASE JUSTO HOFFMANN MD 09/09/2015 72329 ASSAY OF LIPASE JUSTO HOFFMANN MD 09/09/2015 26150 COMPLETE CBC W/AUTO DIFF WBC JUSTO HOFFMANN MD 09/09/2015 78275 HELICOBACTER PYLORI ANTIBODY JUSTO HOFFMANN MD 09/09/2015 51939 CHYLMD PNEUM DNA AMP PROBE JUSTO HOFFMANN MD 09/09/2015 92525 M.PNEUMON DNA AMP PROBE JUSTO HOFFMANN MD 09/09/2015 30468 RESP VIRUS -25 TARGETS TAHIRA KING, JUSTO Carter 09/09/2015 49424 DETECT AGENT NOS DNA AMP TAHIRA KING, JUSTO Carter 09/09/2015 66342 HYDRATE IV INFUSION ADD-ON TAHIRA KING, JUSTO Carter 09/09/2015 86418 THER/PROPH/DIAG INJ IV PUSH TAHIRA KING, JUSTO Carter 09/09/2015 84255 TX/PRO/DX INJ NEW DRUG GERMAIN HOFFMANN MD, JUSTO Carter 09/09/2015 84618 EMERGENCY DEPT VISIT TAHIRA KING, JUSTO Carter 09/09/2015 C9113 INJ PANTOPRAZOLE SODIUM, VIA YAAKOV KNIG, VON Villalba 09/09/2015 G0378 HOSPITAL OBSERVATION PER HR TAHIRA KING, JUSTO Carter 09/09/2015 J2550 PROMETHAZINE HCL INJECTION YAAKOV KING, VON Villalba 09/09/2015 J7030 NORMAL SALINE SOLUTION VON KYLE MD 09/09/2015 J7050 NORMAL SALINE SOLUTION INFUS TAHIRA KING, JUSTO Carter 09/09/2015 Q9967 LOCM 300-399MG/ML IODINE, 1ML JUSTO HOFFMANN MD 09/09/2015 72912 EMERGENCY DEPT VISIT VON NUNO MD 09/09/2015 60487 ROUTINE VENIPUNCTURE JUSTO HOFFMANN MD 09/10/2015 77635 ASSAY OF TOTAL THYROXINE JUSTO HOFFMANN MD 09/10/2015 76581 ASSAY THYROID STIM HORMONE JUSTO HOFFMANN MD 09/10/2015 47705 IADNA-DNA/RNA PROBE TQ JUSTO HOFFMANN MD 09/10/2015 27076 HYDRATE IV INFUSION ADD-ON JUSTO HOFFMANN MD 09/10/2015 J7030 NORMAL SALINE SOLUTION LOLITA NUNO MD, VON Villalba 09/10/2015 84925 EYE EXAM T TREATMENT 01/30/2016 28632 REFRACTION 01/30/2016 42579 ROUTINE VENIPUNCTURE MICHELLE ESQUIVEL DC 02/08/2016 45090 VITAMIN D 25 HYDROXY MICHELLE ESQUIVEL DC 02/08/2016 83375 ASSAY OF FERRITIN MICHELLE ESQUIVEL DC 02/08/2016 55805 GLYCOSYLATED HEMOGLOBIN TEST [facility] 02/08/2016 72696 ASSAY OF IRON [facility] 02/08/2016 35613 ASSAY OF FREE THYROXINE [facility] 02/08/2016 18284 ASSAY THYROID STIM HORMONE [facility] 02/08/2016 95963 ASSAY TRIIODOTHYRONINE (T3) [facility] 02/08/2016 22083 COMPLETE CBC W/AUTO DIFF WBC [facility] 02/08/2016 35989 ALLERGEN SPECIFIC IGE [facility] 02/08/2016 66327 MICROSOMAL ANTIBODY EACH [facility] 02/08/2016 50437 THYROGLOBULIN ANTIBODY [facility] 02/08/[address] ANGIOGRAPHY CHEST SUSI MCKINNEY DO 04/05/2016 92337 COMPREHEN METABOLIC PANEL SUSI MCKINNEY DO 04/05/2016 60800 URINALYSIS AUTO W/SCOPE SUSI MCKINNEY DO 04/05/2016 72230 COMPLETE CBC W/AUTO DIFF WBC SUSI MCKINNEY DO 04/05/2016 73733 FIBRIN DEGRADATION QUANT SUSI MCKINNEY DO 04/05/2016 88923 URINE CULTURE/COLONY COUNT SUSI MCKINNEY DO 04/05/2016 93253 AIRWAY INHALATION TREATMENT SUSI MCKINNEY DO 04/05/2016 66602 THER/PROPH/DIAG IV INF INIT SUSI MCKINNEY DO 04/05/2016 42150 EMERGENCY DEPT VISIT SUSI MCKINNEY DO 04/05/2016 J0696 CEFTRIAXONE SODIUM INJECTION SUSI MCKINNEY DO 04/05/2016 J7040 NORMAL SALINE SOLUTION INFUS SUSI MCKINNEY DO 04/05/2016 J7050 NORMAL SALINE SOLUTION INFUS SUSI MCKINNEY DO 04/05/2016 Q9967 LOCM 300-399MG/ML IODINE, 1ML SUSI MCKINNEY DO 04/05/2016 64680 THER/PROPH/DIAG IV INF INIT SUSI MCKINNEY DO 04/06/2016 J0696 CEFTRIAXONE SODIUM INJECTION SUSI MCKINNEY DO 04/06/2016 J7050 NORMAL SALINE SOLUTION INFUS SUSI MCKINNEY DO 04/06/2016 12186 EYE EXAM T TREATMENT 01/25/2018 36745 REFRACTION 01/25/2018 V2020 Vision svcs frames purchases 01/25/2018 V2100 Lens spher single plano 4.00 01/25/2018 V2103 Spherocylindr 4.00d/12- 2.00d 01/25/2018 V2782 Lens, 1.54-1.65 p/1.60- 1.79g 01/25/2018 77088 ROUTINE VENIPUNCTURE [facility] 03/03/2018 71191 COMPREHEN METABOLIC PANEL [facility] 03/03/2018 75665 URINALYSIS AUTO W/SCOPE [facility] NUCLEAR AUXILIARY OPERATORMAKENZIEEY Fernandez 03/03/2018 66217 ASSAY OF FREE THYROXINE [facility] NUCLEAR AUXILIARY OPERATORCHONG 03/03/2018 47392 ASSAY THYROID STIM HORMONE [facility] 03/03/2018 22035 FREE ASSAY (FT-3) [facility] 03/03/2018 02825 COMPLETE CBC W/AUTO DIFF WBC [facility] MAKENZIE ROBERTSEY Fernandez 03/03/2018 03671 HELICOBACTER PYLORI ANTIBODY [facility] NUCLEAR AUXILIARY OPERATORMAKENZIEEY Fernandez 03/03/2018 Results Test Result Range COMPLETE BLOOD COUNT - 09/09/15 13:44 Platelet 205 10^3u 142-424 MPV 10.1 FL 9.4-12.4 [place] # 0.52 10^3u 0.0-1.0 RBC 4.40 10^6u 4.04-6.13 [place] % 8.8 % 0-12 RDW 12.6 % 11.6-14.8 Neut # 4.33 10^3u 2.0-6.9 Neut % 73.1 % 37-80 WBC 5.92 10^3u 4.60-10.20 MCV 90.7 FL 80.0-97.0 Baso # 0.02 10^3u 0.0-0.1 Baso % 0.3 % 0-2 Eos # 0.07 10^3u 0-0.7 Eos % 1.2 % 0-7 Lymph % 16.6 % 10-50 MCHC 33.8 G/DL 31.8-35.4 MCH 30.7 PG 27.0-31.2 Lymph # 0.98 10^3u 0.6-3.4 HGB 13.5 G/DL 12.2-18.1 HCT 39.9 % 37.7-53.7 Urinalysis - 09/09/15 14:11 Glucose Negative Negative Leukocyte Negative Negative Nitrite Negative Negative pH 7.0 5.5-7.5 Urine Appearance Clear Clear Protein 1+ Negative Ketones 2+ Negative Urobilinogen 0.2 0.2-1.0 Urine Comments Mucous 2+ Urine RBC N3-5 Specific [place] 1.025 1.010-1.020 Urine WBC NONESEEN Blood Trace Negative Color Yellow Yellow Squamous Epithelial Cells 1+ Bilirubin 1+ Negative Site VOID Urine - 09/09/15 14:14 Urine NEG Negative CMP - 09/09/15 14:29 Osmo Calculated 269 MOSM 261-280 Sodium 139 MMOLL 136-145 T. Protein 7.5 G/DL 6.4-8.3 Potassium 3.5 MMOLL 3.5-5.1 T Bili 1.3 MG/DL 0.2-1.2 Calcium 9.2 MG/DL 8.4-10.2 BUN 13 MG/DL 7-26 Chloride 106 MMOLL 98-107 AST 16 U/L 5-34 ALT 17 U/L 0-55 Albumin 4.1 G/DL 3.5-5.0 A/G Ratio 1.2 RATIO 1.2-2.2 Bun/Creat 16 RATIO 7-25 Alk Phos 55 U/L 40-150 CO2 21 MMOLL 22-29 Glucose 109 MG/DL 70-99 Globulin 3.4 G/DL 2.4-3.5 Creatinine 0.8 MG/DL 0.6-1.3 Amylase - 09/09/15 14:29 Amylase 51 U/L 25-125 Lipase - 09/09/15 14:29 Lipase 7 U/L 8-78 Respiratory Panel-Bio Fire - 09/09/15 15:30 Adeno ND Not Detected Adeno2 ND Not Detected Coronavirus 229E ND Not Detected Coronavirus HKU1 ND Not Detected Coronavirus NL63 ND Not Detected Coronavirus OC43 ND Not Detected Human Metapneumovirus ND Not Detected Entero 1 ND Not Detected Entero 2 ND Not Detected Human Rhinovirus 1 ND Not Detected Human Rhinovirus 2 ND Not Detected Human Rhinovirus 3 ND Not Detected Human Rhinovirus 4 ND Not Detected [id number] ND Not Detected FluA-H1-gonzalez ND Not Detected FluA-H3 ND Not Detected FluA-pan1 ND Not Detected FluA-pan2 ND Not Detected Influenza B ND Not Detected Parainfluenza Virus 1 ND Not Detected Parainfluenza Virus 2 ND Not Detected Parainfluenza Virus 3 ND Not Detected Parainfluenza Virus 4 ND Not Detected Respiratory Syncytial Virus ND Not Detected Bordetella pertussis ND Not Detected Chlamydophilia pneumoniae ND Not Detected Mycoplasma pneumoniae ND Not Detected H Pylori Antibody IGG - 09/09/15 17:25 H Pylori Antibody IGG POS Negative GI Panel - Bio Fire - 09/10/15 15:05 Campylobacter ND Not Detected Clostridium difficile tox A/B DETECT Not Detected Plesiomonas shigelloides ND Not Detected Salmonella ND Not Detected Vibrio ND Not Detected Vibrio cholerae ND Not Detected Yersinia enterocolitica ND Not Detected Source UNFORMED Enteroaggregative E. coli ND Not Detected Enteropathogenic E. coli ND Not Detected Enterotoxigenic E. coli ND Not Detected Shiga-like toxin-prod. E coli ND Not Detected Shigella/Enteroinvasive E.coli ND Not Detected Cryptosporidium ND Not Detected Cyclospora cayetanensis ND Not Detected Entamoeba histolytica ND Not Detected Giardia lamblia ND Not Detected Adenovirus F 40/41 ND Not Detected Astrovirus ND Not Detected Norovirus GI/GII ND Not Detected Rotavirus A ND Not Detected Sapovirus ND Not Detected TSH - 09/10/15 16:49 TSH 1.50 UIUML 0.35-4.94 T4 - 09/10/15 16:49 T4 5.25 UG/DL 4.87-11.72 COMPLETE BLOOD COUNT - 02/08/16 09:23 Platelet 205 10^3u 142-424 MPV 10.6 FL 9.4-12.4 [place] # 0.30 10^3u 0.0-1.0 RBC 4.01 10^6u 4.04-6.13 [place] % 6.7 % 0-12 RDW 12.7 % 11.6-14.8 Neut # 3.09 10^3u 2.0-6.9 Neut % 68.8 % 37-80 WBC 4.49 10^3u 4.60-10.20 MCV 92.5 FL 80.0-97.0 Baso # 0.02 10^3u 0.0-0.1 Baso % 0.4 % 0-2 Eos # 0.08 10^3u 0-0.7 Eos % 1.8 % 0-7 Lymph % 22.3 % 10-50 MCHC 32.9 G/DL 31.8-35.4 MCH 30.4 PG 27.0-31.2 Lymph # 1.00 10^3u 0.6-3.4 HGB 12.2 G/DL 12.2-18.1 HCT 37.1 % 37.7-53.7 Hgb A1c - 02/08/16 09:34 Hgb A1c 4.9 % < 6.0 TSH - 02/08/16 10:21 TSH 1.62 UIUML 0.35-4.94 Free T4 - 02/08/16 10:21 Free T4 1.00 NG/DL 0.70-1.48 T3 - 02/08/16 10:21 T3 0.91 NG/ML 0.58-1.59 Iron - 02/08/16 10:21 Iron 69 UG/DL 50-175 Vitamin D 25 Hydroxy - 02/08/16 10:23 Vitamin D 25 Hydroxy 43.3 NG/ML 30-100 Ferritin - 02/08/16 10:23 Ferritin 60.02 NG/ML 25-300 Thyroglobulin Antibodies - 02/12/16 03:35 Thyroglobulin Antibodies 2 IU/mL < or=1 TPO AB - 02/12/16 03:35 Class 0/1 Wheat (F4) 0.24 kU/L TPO AB 1 IU/mL <9 Interpretation: See Below URINALYSIS, NO REFLEX CULTURE - 03/19/16 11:18 UA LEUKOCYTE ESTERASE DIPSTICK TRACE NEGATIVE UA NITRITE DIPSTICK NEGATIVE NEGATIVE UA PROTEIN DIPSTICK NEGATIVE NEGATIVE UA GLUCOSE DIPSTICK NEGATIVE NEGATIVE UA KETONE DIPSTICK TRACE NEGATIVE UA UROBILINOGEN DIPSTICK NORMAL NORMAL UA BILIRUBIN DIPSTICK NEGATIVE NEGATIVE UA BLOOD DIPSTICK NEGATIVE NEGATIVE UA SPECIFIC GRAVITY 1.024 1.015-1.025 UR PH 6.5 5.0-7.0 UA MICROSCOPIC - 03/19/16 11:18 UA BACTERIA 2+ NEGATIVE UA EPITHELIAL CELLS 2+ epi/hpf 0 - 1+ UA RBC 0-3 rbc/hpf 0 - 3 UA VOLUME FOR EXAM 12.0 mL (12mL STD) UA WBC 2-5 wbc/hpf 0 - 5 CBC - 03/19/16 11:18 MEAN CELL HGB 30.4 pg 27.0-33.0 MEAN CELL HGB CONCENTRATION 33.8 g/dL 32.0-37.0 MEAN CELL VOLUME 89.9 fl 80.0-100.0 RED BLOOD CELL 4.57 m/cumm 4.00-6.00 RED CELL DISTRIBUTION WIDTH 12.7 % 11.0-15.6 WHITE BLOOD CELL 6.6 k/cumm 5.0-10.0 HEMOGLOBIN 13.9 gm/dL 12.0-16.0 HEMATOCRIT 41.1 % 37.0-47.0 PLATELET COUNT 240 k/cumm 150-400 METABOLIC PANEL, BASIC - 03/19/16 11:18 POTASSIUM 4.4 mmol/L 3.5-5.3 EST GFR (MDRD) > 60 mL/min > 59 ANION GAP 5 mmol/L 5-15 EST CrCl (CG) > 60 mL/min > 59 GLUCOSE 82 mg/dL 70-99 CALCIUM 8.7 mg/dL 8.5-10.1 BLOOD UREA NITROGEN 17 mg/dL 7-20 CREATININE 0.8 mg/dL 0.6-1.0 SODIUM 139 mmol/L 135-148 CHLORIDE 105 mmol/L 98-110 CARBON DIOXIDE 29 mmol/L 21-32 TEST, SERUM - 04/03/16 11:04 TEST, SERUM NEGATIVE NEGATIVE CBC W/DIFF - 04/03/16 17:25 COMMENT REVIEWED GRANULOCYTE # 8.4 k/cumm 2.0-9.0 GRANULOCYTE % 94 % 50-75 LYMPHOCYTE # 0.3 k/cumm 1.0-4.0 LYMPHOCYTE % 3 % 20-30 MEAN CELL HGB 30.3 pg 27.0-33.0 MEAN CELL HGB CONCENTRATION 33.7 g/dL 32.0-37.0 MEAN CELL VOLUME 89.8 fl 80.0-100.0 MONOCYTE # 0.2 k/cumm 0.1-1.0 MONOCYTE % 2 % 4-6 RED BLOOD CELL 4.00 m/cumm 4.00-6.00 RED CELL DISTRIBUTION WIDTH 12.6 % 11.0-15.6 WHITE BLOOD CELL 8.9 k/cumm 5.0-10.0 HEMOGLOBIN 12.1 gm/dL 12.0-16.0 HEMATOCRIT 35.9 % 37.0-47.0 PLATELET COUNT 167 k/cumm 150-400 COMPLETE BLOOD COUNT - 04/05/16 12:31 Platelet 170 10^3u 142-424 MPV 10.1 FL 9.4-12.4 [place] # 0.36 10^3u 0.0-1.0 RBC 3.82 10^6u 4.04-6.13 [place] % 5.7 % 0-12 RDW 12.8 % 11.6-14.8 Neut # 5.09 10^3u 2.0-6.9 Neut % 81.1 % 37-80 WBC 6.27 10^3u 4.60-10.20 MCV 91.4 FL 80.0-97.0 Baso # 0.01 10^3u 0.0-0.1 Baso % 0.2 % 0-2 Eos # 0.01 10^3u 0-0.7 Eos % 0.2 % 0-7 Lymph % 12.8 % 10-50 MCHC 33.2 G/DL 31.8-35.4 MCH 30.4 PG 27.0-31.2 Lymph # 0.80 10^3u 0.6-3.4 HGB 11.6 G/DL 12.2-18.1 HCT 34.9 % 37.7-53.7 Urinalysis - 04/05/16 12:39 Glucose Negative Negative Leukocyte 1+ Negative Nitrite Negative Negative pH 7.5 5.5-7.5 Urine Appearance Clear Clear Protein Negative Negative Ketones Negative Negative Urobilinogen 0.2 0.2-1.0 Urine Comments CULTURE SET Urine RBC N16-20 Specific [place] 1.015 1.010-1.020 Urine WBC N6-10 Amorphous Crystals 1+ Blood 2+ Negative Color Yellow Yellow Squamous Epithelial Cells 1+ Bilirubin Negative Negative Site VOID D-Dimer - 04/05/16 12:45 D-Dimer 2280 NG/ML < 100 CMP - 04/05/16 12:53 Osmo Calculated 266 MOSM 261-280 Sodium 139 MMOLL 136-145 T. Protein 6.2 G/DL 6.4-8.3 Potassium 3.1 MMOLL 3.5-5.1 T Bili 0.8 MG/DL 0.2-1.2 Calcium 8.6 MG/DL 8.4-10.2 BUN 6 MG/DL 7-26 Chloride 108 MMOLL 98-107 AST 32 U/L 5-34 ALT 38 U/L 0-55 Albumin 3.2 G/DL 3.5-5.0 A/G Ratio 1.1 RATIO 1.2-2.2 Bun/Creat 9 RATIO 7-25 Alk Phos 47 U/L 40-150 CO2 24 MMOLL 22-29 Glucose 97 MG/DL 70-99 Globulin 3.0 G/DL 2.4-3.5 Creatinine 0.7 MG/DL 0.6-1.3 Encounters ACCT No. Visit Date/Time Discharge Status Pt. Type Provider Facility Loc./Unit Complaint [id number] 03/03/2018 11:38:00 03/03/2018 11:38:00 DIS Outpatient NIHARIKA [facility] [id number] 04/05/2016 11:53:00 04/05/2016 23:26:00 DIS Emergency TAHIRA KING, [facility] ER [id number] 04/05/2016 20:15:00 04/05/2016 21:30:00 DIS Outpatient SUSI MCKINNEY DO [facility] [id number] 02/08/2016 08:33:00 02/08/2016 08:33:00 DIS Outpatient MICHELLE ESQUIVEL DC [facility] OTHER [id number] 09/09/2015 16:05:00 09/10/2015 16:45:00 DIS Outpatient TAHIRA KING, [facility] NS1 [id number] 09/09/2015 13:30:00 09/09/2015 13:30:00 [id number] 06/21/2015 07:57:00 06/21/2015 08:30:00 DIS Outpatient TAHIRA KING, [facility] [place] [id number] 04/05/2018 10:01:00 Document Registration [id number] 03/10/2018 09:18:00 Document Registration [id number] 06/29/2015 10:32:01 ACT Unknown [id number] 01/25/2018 15:00:00 Document Registration [id number] 01/25/2018 00:00:00 Document Registration [id number] 01/30/2016 15:29:17 Document Registration [id number] 04/03/2016 10:41:00 04/04/2016 10:00:00 DIS Outpatient Kevin KING, [facility] W.OPRA [id number] 03/19/2016 10:30:00 03/19/2016 10:30:00 DIS Outpatient Kevin KING, [facility] W.POA [id number] 04/06/2018 05:35:00 04/06/2018 10:36:00 DIS Outpatient AMI MANN MD [facility] PREOP COLONOSCOPY/EGD [id number] 04/12/2018 09:30:00 PEN Preadmit AMI MANN MD [facility] ENDO WT LOSS/FX HX ESOPHAGEAL CA/NAUSEA/IRREG BM /DIARRH
[2018-04-12] MEDS ORDERED: fentaNYL INJECTION 100 MCG/2 ML AMP ONE ×2 (10:06→10:07)
[2018-04-12] MEDS ORDERED: HURRICAINE EXT TUBE (BENZOCAINE) ONE (10:07)
[2018-04-12] MEDS ORDERED: MIDAZOLAM 2 MG/2 ML (VERSED) VIAL ONE ×3 (10:07)
[2018-04-12 11:05] VITALS: BP 116/70
--- NOTE | 2018-04-12 11:29 | Endo Procedure Record ---
Endo Procedure Report Date of Procedure Last Colonoscopy: No Apr 12, 2018 Surgeon (s) AMI MANN MD Post Procedure/Op Diagnosis EGD: Grade 2 esophagitis. A few, small gastric polyps along the body of the stomach. Distal gastritis Colonoscopy: Incomplete examination due to inability to traverse the proximal sigmoid colon. No abnormality identified up to this level. Procedure Performed EGD with antral biopsy for H. pylori Gastric hot biopsy polypectomy incomplete colonoscopy/flexible sigmoidoscopy Description of Procedure Anesthesia Type: Conscious Sedation Specimen(s) collected/removed gastric tic antral mucosa for H. pylori. Gastric polyp Description of the Procedure indication for the procedures: This lady came in for an upper endoscopy to evaluate nausea with weight loss and on the basis of a family history of esophageal carcinoma, along with colonoscopy to investigate a change in her bowel habits. Informed consent was obtained after reviewing the procedures in detail. Description of procedures: She was placed in left lateral decubitus position and her vital signs were monitored. Conscious sedation was achieved using Versed and fentanyl. EGD/antral biopsy/gastric polypectomy: The flexible gastroscope was introduced down the esophagus, past the stomach, into the proximal duodenum. Findings: Esophagus: Grade 2 esophagitis without any stricture Stomach: 1. Distal gastritis of moderate severity. Biopsy for H. pylori was obtained 2. A few, 1 mm polyps along the proximal body of the stomach. One of them was excised with hot biopsy forceps for histological examination duodenum: Normal. She tolerated the procedure well and was turned around in preparation for colonoscopy. Impression nausea and weight loss. Esophagitis, gastritis and incidental, small gastric polyps. H. pylori status pending. Incomplete colonoscopy/flexible sigmoidoscopy: Digital rectal examination was unremarkable. The colonoscope was introduced into the rectum and I was able to advance to the proximal sigmoid colon. Despite using the pediatric the colonoscope, proximal sigmoid colon could not be negotiated. Therefore, further attempts were abandoned, with arrangements for a CT with reconstructed images, using rectal contrast. Up to the level of examination, there was no mucosal abnormality. she tolerated the procedures reasonably well. Impression: Change in bowel habits. Incomplete colonoscopy. Reconstructed CT scan with rectal contrast pending Copy Copies To 1: MAGALIS MEJIA XAVIER M MD Apr 12, 2018 11:29
--- NOTE | 2018-04-12 11:30 | Discharge Inst-Simple/Standard ---
Discharge Inst-Standard Discharge Medications New, Converted or Re-Newed RX: Other Patient Instructions/Follow Up Plan of Care/Instructions/FU: CT of abdomen and pelvis with rectal contrast prior to discharge. Follow-up with her primary physician Activity as Tolerated: Yes Discharge Diet: No Restrictions AMI MANN MD Apr 12, 2018 11:30
[2018-04-12 11:51] LABS: BUN/CREATININE RATIO 14; CREATININE SERUM 0.78 MG/DL (0.60-1.30); GFR ESTIMATED > 60
[2018-04-12 12:00] VITALS: BP 107/66
[2018-04-12 14:05] VITALS: BP 107/66
--- NOTE | 2018-04-12 14:06 | Diagnostic Imaging Report ---
PROCEDURE: CT abdomen and pelvis without contrast. TECHNIQUE: Multiple contiguous axial images were obtained through the abdomen and pelvis without the use of intravenous contrast. INDICATION: Incomplete colonoscopy. Patient has change in bowel habits. FINDINGS: The lung bases are clear. Liver and gallbladder are unremarkable. The pancreas and spleen are unremarkable. No adrenal mass is seen. No renal calculi or hydronephrosis is identified. The aorta is nonaneurysmal. There is good opacification of the small bowel from orally ingested contrast. There is also good opacification of the colon from rectal contrast. 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 The majority of the small bowel is located in the right abdomen. Duodenum extends into the right abdomen. The ascending colon and cecum are located in the midline, to the left of the small bowel loops. No bowel wall thickening or mass is seen. No definite intestinal obstruction or evidence of volvulus is identified. There is no free fluid identified. Bladder is decompressed. IMPRESSION: Findings consistent with midgut malrotation. No acute feature is identified. Dictated by: Dictated on workstation # [id number]
== END 2018-04-12 14:19 | disposition home or self-care (01) ==
LOC: ENDO 08:30
PROVIDERS: ATTEND Surgery
DX: K20.9 Esophagitis, unspecified (principal); K31.7 Polyp of stomach and duodenum; K29.70 Gastritis, unspecified, without bleeding; K59.09 Other constipation; K52.9 Noninfective gastroenteritis and colitis, unspecified; R63.4 Abnormal weight loss; Z80.0 Family history of malignant neoplasm of digestive organs
CPT/HCPCS: 36415; 74176; 82565; 84443; 84520; 88305